=== PATIENT | female | born 2000 | race Caucasian/White ===

== ENCOUNTER 2020-07-15 11:25 | Emergency (ER) | payer OTHER ==
[~2020-07-15] VITALS: Ht 157.4 cm; Wt 111.8 kg
[2020-07-15] MEDS ORDERED: FAMOTIDINE 20MG/2ML IV (PEPCID) IV STA (11:53)
[2020-07-15] MEDS ORDERED: LACTATED RINGERS 1,000 ML IV STA (11:53)
--- NOTE | 2020-07-15 11:53 | ED Abdominal Pain ---
General Chief Complaint: Abdominal/GI Problems Stated Complaint: LLQ PAIN; DIZZINESS; NAUSEA History of Present Illness Date Seen by Provider: Jul 15, 2020 Time Seen by Provider: 11:48 Initial Comments 19-year-old female presents with some left quadrant pain. Patient reports been going on for couple days. Happens after she eats or drinks evening. Reports that is mainly in the left mid to upper quadrant sometimes goes down the left lower quadrant. She is a bit nauseated. She has had diarrhea for couple days. She denies any cough, fever, chills, chest pain or other systemic complaints. Allergies and Home Medications Allergies Coded Allergies: No Known Drug Allergies (Unverified , 07/15/20) Patient Home Medication List Home Medication List Reviewed: Yes Review of Systems Review of Systems Constitutional: No chills, No fever, No weakness Respiratory: Denies Cough, Denies Shortness of Air Cardiovascular: Denies Chest Pain, Denies Palpitations Gastrointestinal: Abdominal Pain, Diarrhea, Nausea Genitourinary: Denies Burning, Denies Frequency Skin: no symptoms reported Psychiatric/Neurological: No Symptoms Reported Endocrine: No Symptoms Reported Hematologic/Lymphatic: No Symptoms Reported Past Jvhjnbq-Swfpjh-Hojfzu Hx Past Med/Social Hx: Reviewed Nursing Past Med/Soc Hx Physical Exam Vital Signs Vital Signs - First Documented 07/15/20 11:31 Temp 37.2 Pulse 91 Resp 16 B/P (MAP) 125/73 (90) Pulse Ox 100 O2 Delivery Room Air Capillary Refill : Height/Weight/BMI Height: '" Weight: lbs. oz. 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, no motor/sensory deficits, alert, normal mood/affect, oriented x 3 Skin: normal color, warm/dry Progress/Results/Core Measures Results/Orders Lab Results Laboratory Tests Test 07/15/20 11:43 07/15/20 12:20 Range/Units Urine Color RED H Urine Clarity CLOUDY Urine pH 7.5 5-9 Urine Specific [place] 1.025 H 1.016-1.022 Urine Protein NEGATIVE NEGATIVE Urine Glucose (UA) NEGATIVE NEGATIVE Urine Ketones NEGATIVE NEGATIVE Urine Nitrite NEGATIVE NEGATIVE Urine Bilirubin NEGATIVE NEGATIVE Urine Urobilinogen 0.2 < = 1.0 MG/DL Urine Leukocyte Esterase NEGATIVE NEGATIVE Urine RBC (Auto) 3+ H NEGATIVE Urine RBC TNTC H /HPF Urine WBC RARE /HPF Urine Squamous Epithelial Cells 0-2 /HPF Urine Crystals NONE /LPF Urine Bacteria LARGE H /HPF Urine Casts NONE /LPF Urine Mucus NEGATIVE /LPF Urine Culture Indicated NO White Blood Count 9.9 4.3-11.0 10^3/uL Red Blood Count 4.99 4.35-5.85 10^6/uL Hemoglobin 13.6 11.5-16.0 G/DL Hematocrit 40 35-52 % Mean Corpuscular Volume 81 80-99 FL Mean Corpuscular Hemoglobin 27 25-34 PG Mean Corpuscular Hemoglobin Concent 34 32-36 G/DL Red Cell Distribution Width 13.7 10.0-14.5 % Platelet Count 275 130-400 10^3/uL Mean Platelet Volume 9.9 7.4-10.4 FL Immature Granulocyte % (Auto) 0 % Neutrophils (%) (Auto) 66 42-75 % Lymphocytes (%) (Auto) 26 12-44 % Monocytes (%) (Auto) 6 0-12 % Eosinophils (%) (Auto) 1 0-10 % Basophils (%) (Auto) 1 0-10 % Neutrophils # (Auto) 6.5 1.8-7.8 X 10^3 Lymphocytes # (Auto) 2.6 1.0-4.0 X 10^3 Monocytes # (Auto) 0.6 0.0-1.0 X 10^3 Eosinophils # (Auto) 0.1 0.0-0.3 10^3/uL Basophils # (Auto) 0.1 0.0-0.1 10^3/uL Immature Granulocyte # (Auto) 0.0 0.0-0.1 10^3/uL Sodium Level 137 135-145 MMOL/L Potassium Level 3.9 3.6-5.0 MMOL/L Chloride Level 101 98-107 MMOL/L Carbon Dioxide Level 26 21-32 MMOL/L Anion Gap 10 5-14 MMOL/L Blood Urea Nitrogen 10 7-18 MG/DL Creatinine 0.63 0.60-1.30 MG/DL Estimat Glomerular Filtration Rate > 60 BUN/Creatinine Ratio 16 Glucose Level 97 70-105 MG/DL Calcium Level 9.5 8.5-10.1 MG/DL Corrected Calcium 9.3 8.5-10.1 MG/DL Total Bilirubin 0.2 0.1-1.0 MG/DL Aspartate Amino Transf (AST/SGOT) 16 5-34 U/L Alanine Aminotransferase (ALT/SGPT) 22 0-55 U/L Alkaline Phosphatase 84 40-136 U/L C-Reactive Protein 0.70 H <0.50 MG/DL Total Protein 7.9 6.4-8.2 GM/DL Albumin 4.2 3.2-4.5 GM/DL Lipase 14 8-78 U/L My Orders Orders - SINGH,ANDREA L DO Cbc With Automated Diff (07/15/20 11:53) Comprehensive Metabolic Panel (07/15/20 11:53) Lipase (07/15/20 11:53) Ua Culture If Indicated (07/15/20 11:53) Crp Fs (07/15/20 11:53) Abdomen Flat & Upright/Decub (07/15/20 11:53) Lactated Ringers (Lr 1000 Ml Iv Solution (07/15/20 11:53) Famotidine Injection (Pepcid Injection) (07/15/20 11:53) Ed Iv/Invasive Line Start (07/15/20 11:53) Vital Signs/I&O 07/15/20 11:31 Temp 37.2 Pulse 91 Resp 16 B/P (MAP) 125/73 (90) Pulse Ox 100 O2 Delivery Room Air Progress Progress Note : Time: 13:07 Progress Note Patient tenderness is where her elevated stool load is on x-ray. She has no acute findings on x-ray. She does not have any rebound or other concerning physical exam. Patient likely has some mild constipation with may be early GI bug. Discussed with her the need to add MiraLAX if she is having any further stool issues, drinking plenty of fluid, recommend Pepcid for some mild gastritis. Patient stable and discharged home Diagnostic Imaging Diagonstic Imaging: Xray Plain Films/CT/US/NM/MRI: abdomen Comments [place], [place] NAME: DIOR GARCIA [facility] REC#: [id number] PT STATUS: REG ER : 2000 PHYSICIAN: ANDREA SINGH DO ADMIT DATE: 07/15/20/ER FS Draft Date of Exam:07/15/20 ABDOMEN FLAT & UPRIGHT/DECUB INDICATION: Left lower quadrant pain. FINDINGS: There is stool in the colon. The colonic fecal volume may be mildly elevated. No focal impaction or obstruction. There are pelvic calcifications, predominantly if not entirely of a vascular nature. The curvilinear calcification in the left pelvis could be vascular or a distal ureteral stone measuring 3 mm, correlate clinically. No opaque kidney stones are found. There is no evidence for small bowel obstruction. IMPRESSION: 1. Borderline elevated colonic fecal load, mild constipation not excluded. Pelvic phleboliths are present with one left-sided pelvic calcification that could reflect stone in the appropriate clinical scenario. 2. No evidence for bowel obstruction or perforation. Reviewed: Reviewed by Me, Reviewed/Discussed Departure Impression Primary Impression: Gastritis Qualified Codes: K29.70 - Gastritis, unspecified, without bleeding Additional Impression: Constipation Qualified Codes: K59.00 - Constipation, unspecified Disposition: HOME, SELF-CARE Condition: Stable Departure-Patient Inst. Referrals: NO,LOCAL PHYSICIAN (PCP/Family) Primary Care Physician Patient Instructions: Gastritis, Constipation, Adult (DC) Add. Discharge Instructions: Please start Pepcid(famotidine) daily as directed on package Drink plenty of fluids Follow-up with your primary care provider if symptoms have not improved by the middle next week or return the ER if they significantly worsen All discharge instructions reviewed with patient and/or family. Voiced understanding. ANDREA SINGH DO Jul 15, 2020 11:53
[2020-07-15 12:18] LABS: CLARITY,URINE CLOUDY; COLOR,URINE RED; PH,URINE 7.5 (5-9)
--- NOTE | 2020-07-15 12:18 | Diagnostic Imaging Report ---
INDICATION: Left lower quadrant pain. FINDINGS: There is stool in the colon. The colonic fecal volume may be mildly elevated. No focal impaction or obstruction. There are pelvic calcifications, predominantly if not entirely of a vascular nature. The curvilinear calcification in the left pelvis could be vascular or a distal ureteral stone measuring 3 mm, correlate clinically. No opaque kidney stones are found. There is no evidence for small bowel obstruction. IMPRESSION: 1. Borderline elevated colonic fecal load, mild constipation not excluded. Pelvic phleboliths are present with one left-sided pelvic calcification that could reflect stone in the appropriate clinical scenario. 2. No evidence for bowel obstruction or perforation. Dictated by: Dictated on workstation # [id number]
[2020-07-15 12:19] LABS: BACTERIA,URINE LARGE /HPF; BILIRUBIN,URINE NEGATIVE (NEGATIVE); GLUCOSE, URINE (UA) NEGATIVE (NEGATIVE); KETONES,URINE NEGATIVE (NEGATIVE); LEUKOCYTE ESTERASE ,URINE NEGATIVE (NEGATIVE); NITRITE,URINE NEGATIVE (NEGATIVE); PROTEIN,URINE NEGATIVE (NEGATIVE); RBC,URINE TNTC /HPF; SQUAMOUS EPITHELIAL CELL,UR 0-2 /HPF; WBC,URINE RARE /HPF
[2020-07-15 12:32] LABS: HEMATOCRIT 40 % (35-52); HEMOGLOBIN 13.6 G/DL (11.5-16.0); MEAN CORPUSCULAR HEMOGLOBIN 27 PG (25-34); MEAN CORPUSCULAR HGB CONC 34 G/DL (32-36); MEAN CORPUSCULAR VOLUME 81 FL (80-99); MEAN PLATELET VOLUME 9.9 FL (7.4-10.4); PLATELET COUNT 275 10^3/uL (130-400); WHITE BLOOD COUNT 9.9 10^3/uL (4.3-11.0)
[2020-07-15 12:33] LABS: BASOPHILS # (AUTO) 0.1 10^3/uL (0.0-0.1); BASOPHILS % (AUTO) 1 % (0-10); EOSINOPHILS # (AUTO) 0.1 10^3/uL (0.0-0.3); EOSINOPHILS % (AUTO) 1 % (0-10); LYMPHOCYTES # (AUTO) 2.6 X 10^3 (1.0-4.0); LYMPHOCYTES % (AUTO) 26 % (12-44); MONOCYTES # (AUTO) 0.6 X 10^3 (0.0-1.0); MONOCYTES % (AUTO) 6 % (0-12); NEUTROPHILS # (AUTO) 6.5 X 10^3 (1.8-7.8); NEUTROPHILS % (AUTO) 66 % (42-75)
[2020-07-15 12:56] LABS: ALANINE AMINOTRANSFERASE 22 U/L (0-55); ALKALINE PHOSPHATASE 84 U/L (40-136); BILIRUBIN,TOTAL 0.2 MG/DL (0.1-1.0); BUN/CREATININE RATIO 16; CALCIUM 9.5 MG/DL (8.5-10.1); CARBON DIOXIDE 26 MMOL/L (21-32); CHLORIDE 101 MMOL/L (98-107); CREATININE SERUM 0.63 MG/DL (0.60-1.30); GFR ESTIMATED > 60; GLUCOSE 97 MG/DL (70-105); POTASSIUM 3.9 MMOL/L (3.6-5.0); SODIUM 137 MMOL/L (135-145); TOTAL PROTEIN 7.9 GM/DL (6.4-8.2)
[2020-07-15 12:57] LABS: ALBUMIN 4.2 GM/DL (3.2-4.5); LIPASE 14 U/L (8-78)
[2020-07-15 13:25] VITALS: BP 127/69
== END 2020-07-15 13:26 | disposition home or self-care (01) ==
LOC: EDUNIT# 11:25 → ER FS 11:27
DX: K29.70 Gastritis, unspecified, without bleeding (principal); K59.00 Constipation, unspecified
CPT/HCPCS: 36415; 74019; 80053; 81000; 83690; 85025; 86141

== ENCOUNTER 2021-12-28 07:42 | Emergency (ER) | payer OTHER ==
[~2021-12-28] VITALS: Ht 157 cm; Wt 113.0 kg
[2021-12-28] MEDS ORDERED: KETOROLAC 30 MG/ML VIAL IVP STA (07:57)
[2021-12-28] MEDS ORDERED: NS IV 1000 ML 1,000 ML IV STA (07:57)
[2021-12-28] MEDS ORDERED: ONDANSETRON 4 MG/2 ML (SDV) Z0FRAN IVP STA (07:57)
[2021-12-28] MEDS ORDERED: FURO20TA4 (08:01)
[2021-12-28 08:02] LABS: BASOPHILS % (AUTO) 0 % (0-10); EOSINOPHILS # (AUTO) 0.1 10^3/uL (0.0-0.3); EOSINOPHILS % (AUTO) 1 % (0-10); HEMATOCRIT 39 % (35-52); HEMOGLOBIN 12.8 g/dL (11.5-16.0); LYMPHOCYTES # (AUTO) 2.6 10^3/uL (1.0-4.0); LYMPHOCYTES % (AUTO) 19 % (12-44); MEAN CORPUSCULAR HEMOGLOBIN 26 pg (25-34); MEAN CORPUSCULAR HGB CONC 33 g/dL (32-36); MEAN CORPUSCULAR VOLUME 79 fL (80-99); MEAN PLATELET VOLUME 9.5 fL (9.0-12.2); MONOCYTES # (AUTO) 0.9 10^3/uL (0.0-1.0); MONOCYTES % (AUTO) 7 % (0-12); NEUTROPHILS # (AUTO) 9.7 10^3/uL (1.8-7.8); NEUTROPHILS % (AUTO) 72 % (42-75); PLATELET COUNT 285 10^3/uL (130-400); WHITE BLOOD COUNT 13.4 10^3/uL (4.3-11.0)
[2021-12-28 08:05] LABS: BILIRUBIN,URINE NEGATIVE (NEGATIVE); CLARITY,URINE SL CLOUDY; COLOR,URINE YELLOW; GLUCOSE, URINE (UA) NEGATIVE (NEGATIVE); KETONES,URINE NEGATIVE (NEGATIVE); LEUKOCYTE ESTERASE ,URINE 2+ (NEGATIVE); NITRITE,URINE NEGATIVE (NEGATIVE); PH,URINE 6.5 (5-9); PROTEIN,URINE NEGATIVE (NEGATIVE)
--- NOTE | 2021-12-28 08:08 | ED Abdominal Pain ---
General Chief Complaint: Abdominal/GI Problems Stated Complaint: RT SIDE PAIN Source of Information: Patient NPO Since: 714 History of Present Illness Date Seen by Provider: Dec 28, 2021 Time Seen by Provider: 07:45 Initial Comments 21-year-old female presenting with complaints of sudden onset of right-sided pain and flank pain this morning. She states after she woke up she suddenly developed pain in the right side. She has nausea but has not vomited. She f eels like the pain is worse when she is walking and moving. She has not tried taking anything for the pain. She rates the pain 8 out of 10. Pain has been constant since starting other than being more severe with walking and moving. She denies any pain with urination. Her last menstrual cycle was December 15. She denies having a surgery on her abdomen or pelvis. She has had no change in her bowels. She denies fever or chills. Timing/Duration: 1/2 Hour Severity/Quality: Severe, Sharp Location: RUQ, RLQ, Flank (Right side) Radiation: Flank (Right side) Activities at Onset: None Modifying Factors: Worsens With Movement Associated Symptoms: No Back Pain, No Chest Pain, No Diaphoresis, No Fever/Chills, No Fatigue, No Headache, No Heartburn; Nausea/Vomiting (Nausea but no vomiting); No Rash, No Shortness of Air, No Swelling/Mass in Abdomen, No Syncope, No Weakness Allergies and Home Medications Allergies Coded Allergies: No Known Drug Allergies (Unverified , 07/15/20) Patient Home Medication List Home Medication List Reviewed: Yes Furosemide (Furosemide) 20 Mg Tablet, (Reported) Entered as Reported by: BISI LEWIS on 12/28/21 0801 Last Action: New Order Nitrofurantoin Monohyd/M-Cryst (Macrobid 100 mg Capsule) 100 Mg Capsule, 1 TAB PO BID Prescribed by: LEIDA BETH on 12/28/21 0855 Review of Systems Review of Systems Constitutional: No chills, No fever EENTM: No Symptoms Reported Respiratory: No Symptoms Reported Cardiovascular: No Symptoms Reported Gastrointestinal: See HPI; Denies Diarrhea; Nausea; Denies Vomiting Genitourinary: Denies Burning, Denies Frequency, Denies Pain Musculoskeletal: no symptoms reported Skin: no symptoms reported Psychiatric/Neurological: Anxiety Past Oxzxxrb-Fxqdml-Funpmg Hx Patient Social History Tobacco Use?: No Use of E-Cig and/or Vaping dev: No Substance use?: No Alcohol Use?: No Seasonal Allergies Seasonal Allergies: No Past Medical History Surgery/Hospitalization HX: 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 oz. 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, alert, oriented x 3, other (anxious) Skin: normal color, warm/dry Progress/Results/Core Measures Results/Orders Lab Results Laboratory Tests Test 12/28/21 07:48 12/28/21 07:50 Range/Units Urine Color YELLOW Urine Clarity [place] CLOUDY Urine pH 6.5 5-9 Urine Specific [place] 1.020 1.016-1.022 Urine Protein NEGATIVE NEGATIVE Urine Glucose (UA) NEGATIVE NEGATIVE Urine Ketones NEGATIVE NEGATIVE Urine Nitrite NEGATIVE NEGATIVE Urine Bilirubin NEGATIVE NEGATIVE Urine Urobilinogen 0.2 < = 1.0 MG/DL Urine Leukocyte Esterase 2+ H NEGATIVE Urine RBC (Auto) NEGATIVE NEGATIVE Urine RBC NONE /HPF Urine WBC 5-10 H /HPF Urine Squamous Epithelial Cells 10-25 H /HPF Urine Crystals NONE /LPF Urine Bacteria MODERATE H /HPF Urine Casts NONE /LPF Urine Mucus NEGATIVE /LPF Urine Culture Indicated YES White Blood Count 13.4 H 4.3-11.0 10^3/uL Red Blood Count 4.97 3.80-5.11 10^6/uL Hemoglobin 12.8 11.5-16.0 g/dL Hematocrit 39 35-52 % Mean Corpuscular Volume 79 L 80-99 fL Mean Corpuscular Hemoglobin 26 25-34 pg Mean Corpuscular Hemoglobin Concent 33 32-36 g/dL Red Cell Distribution Width 13.4 10.0-14.5 % Platelet Count 285 130-400 10^3/uL Mean Platelet Volume 9.5 9.0-12.2 fL Immature Granulocyte % (Auto) 0 % Neutrophils (%) (Auto) 72 42-75 % Lymphocytes (%) (Auto) 19 12-44 % Monocytes (%) (Auto) 7 0-12 % Eosinophils (%) (Auto) 1 0-10 % Basophils (%) (Auto) 0 0-10 % Neutrophils # (Auto) 9.7 H 1.8-7.8 10^3/uL Lymphocytes # (Auto) 2.6 1.0-4.0 10^3/uL Monocytes # (Auto) 0.9 0.0-1.0 10^3/uL Eosinophils # (Auto) 0.1 0.0-0.3 10^3/uL Basophils # (Auto) 0.0 0.0-0.1 10^3/uL Immature Granulocyte # (Auto) 0.1 0.0-0.1 10^3/uL Sodium Level 137 135-145 MMOL/L Potassium Level 4.0 3.6-5.0 MMOL/L Chloride Level 103 98-107 MMOL/L Carbon Dioxide Level 24 21-32 MMOL/L Anion Gap 10 5-14 MMOL/L Blood Urea Nitrogen 11 7-18 MG/DL Creatinine 0.63 0.60-1.30 MG/DL Estimat Glomerular Filtration Rate 129 BUN/Creatinine Ratio 17 Glucose Level 95 70-105 MG/DL Calcium Level 9.0 8.5-10.1 MG/DL Corrected Calcium 9.0 8.5-10.1 MG/DL Total Bilirubin 0.4 0.1-1.0 MG/DL Aspartate Amino Transf (AST/SGOT) 28 5-34 U/L Alanine Aminotransferase (ALT/SGPT) 40 0-55 U/L Alkaline Phosphatase 87 40-136 U/L Total Protein 7.6 6.4-8.2 GM/DL Albumin 4.0 3.2-4.5 GM/DL Lipase 16 8-78 U/L My Orders Orders - LEIDA BETH MD Comprehensive Metabolic Panel (12/28/21 07:47) Lipase (12/28/21 07:47) Ua Culture If Indicated (12/28/21 07:47) Ed Iv/Invasive Line Start (12/28/21 07:47) Cbc With Automated Diff (12/28/21 07:47) Urine Bedside (12/28/21 07:47) Ns Iv 1000 Ml (Sodium Chloride 0.9%) (12/28/21 07:57) Ondansetron Injection (Zofran Injectio (12/28/21 07:57) Ketorolac Injection (Toradol Injection) (12/28/21 07:57) Ct Abd/Pelvis Wo(Kidney Stone) (12/28/21 07:58) Urine Culture (12/28/21 07:48) Ceftriaxone 1 Gm Pre-Mix (Rocephin 1 Gm (12/28/21 08:34) Vital Signs/I&O 12/28/21 12/28/21 07:45 09:14 Temp 36.6 36.6 Pulse 95 95 Resp 16 16 B/P (MAP) 149/86 (107) 149/86 Pulse Ox 98 98 O2 Delivery Room Air Room Air Progress Progress Note #1: Progress Note Obtain labs and urinalysis, Bedside test. CT scan of abdomen/pelvis without contrast to evaluate for possible kidney stone vs gallbladder vs colitis vs diverticulitis vs appendicitis. Give NS 1 L IVF bolus for hydration, Zofran 4 mg IV for nausea, Toradol 30 mg IV for pain. Progress Note #2: Time: 08:32 Progress Note Urine shows signs of UTI. She does have slight elevation of her white blood cell count to 13.4. CT scan showed no definite acute abnormality but increased stool towards the ileum. Will treat with antibiotic for UTI and reassess her pain after treatment here in the ED. Progress Note #3: Time: 08:49 Progress Note Chemistry panel without acute significant abnormality. Patient reports pain down to 3 out of 10. Will treat for UTI and advise to take Acetaminophen or Ibuprofen for pain if needed. Drink plenty of fluids. If pain worsens instead of improving in next 12 to 24 hours then return for repeat evaluation. At this point you do not have signs of appendicitis, diverticulitis, colitis, cholecystitis, bowel obstruction. Counseled on strict return precautions and follow-up as needed for continued symptoms Diagnostic Imaging Diagonstic Imaging: CT Plain Films/CT/US/NM/MRI: abdomen, pelvis Comments NAME: DIOR GARCIA [facility] REC#: [id number] PT STATUS: REG ER : 2000 PHYSICIAN: LEIDA BETH MD ADMIT DATE: 12/28/21/ER FS Draft Date of Exam:12/28/21 CT ABD/PELVIS WO(KIDNEY STONE) PROCEDURE: CT urinary tract, rule out kidney stone. TECHNIQUE: Multiple contiguous axial images were obtained through the abdomen and pelvis without the use of intravenous contrast. Auto Exposure Controls were utilized during the CT exam to meet ALARA standards for radiation dose reduction. INDICATION: Acute onset right flank pain Noncontrast images of liver and spleen reveal no focal abnormality. There is no evidence of pancreatic, gallbladder or adrenal gland abnormality. Kidneys are also unremarkable in appearance without evidence of hydronephrosis. There is no evidence of urinary tract calculus. There is fecalization of contents within distal ileum indicating stasis. Occasional mildly prominent lymph nodes are also present in the right lower quadrant mesentery. Unopacified bladder is unremarkable. IMPRESSION: No definite acute abnormalities identified although there is suggestion of fecal stasis in the distal ileum. No associated inflammation or fluid collection is identified. Dictated on workstation # [id number] Dict: 12/28/21812 Trans: 12/28/21821 [facility] [place] [id number] Interpreted by: DAVE MINOR MD Electronically signed by: Reviewed: Reviewed by Me Departure Impression Primary Impression: Right sided abdominal pain Additional Impression: Acute cystitis without hematuria Disposition: HOME, SELF-CARE Condition: Stable Departure-Patient Inst. Decision time for Depature: 08:55 Referrals: RAFITA KRAUS MD (PCP) Primary Care Physician Patient Instructions: Flank Pain ED, Abdominal Pain, Adult ED, Urinary Tract Infection, Adult ED Add. Discharge Instructions: Stay well-hydrated and drink plenty of fluids. Take the full course of antibiotics to help treat for urinary tract infection. For pain take acetaminophen or an NSAID such as ibuprofen to help with severe pain. If your symptoms are worsening instead of improving over the next 12 to 24 hours then you should be reevaluated. At this point there is no signs of appendicitis or gallbladder problem. However if your symptoms are worsening we would need to take a look again since everything just started suddenly this morning. It is possible that it is too early to show any other issue on your testing. So if your symptoms worsen then we would need to check again to see if there is something more than the Urine infection and Increased stool on the right side to cause your pain. All discharge instructions reviewed with patient and/or family. Voiced understanding. Scripts Nitrofurantoin Monohyd/M-Cryst (Macrobid 100 mg Capsule) 100 Mg Capsule 1 TAB PO BID for UTI for 7 Days, #14 CAP 0 Refills Prov: LEIDA BETH MD 12/28/21 Work/School Note: Work Release Form Date Seen in the Emergency Department: Dec 28, 2021 Return to Work: Dec 29, 2021 Restrictions: No Restrictions LEIDA BETH MD Dec 28, 2021 08:08
[2021-12-28 08:13] LABS: BACTERIA,URINE MODERATE /HPF
--- NOTE | 2021-12-28 08:23 | Diagnostic Imaging Report ---
PROCEDURE: CT urinary tract, rule out kidney stone. TECHNIQUE: Multiple contiguous axial images were obtained through the abdomen and pelvis without the use of intravenous contrast. Auto Exposure Controls were utilized during the CT exam to meet ALARA standards for radiation dose reduction. INDICATION: Acute onset right flank pain Noncontrast images of liver and spleen reveal no focal abnormality. There is no evidence of pancreatic, gallbladder or adrenal gland abnormality. Kidneys are also unremarkable in appearance without evidence of hydronephrosis. There is no evidence of urinary tract calculus. There is fecalization of contents within distal ileum indicating stasis. Occasional mildly prominent lymph nodes are also present in the right lower quadrant mesentery. Unopacified bladder is unremarkable. IMPRESSION: No definite acute abnormalities identified although there is suggestion of fecal stasis in the distal ileum. No associated inflammation or fluid collection is identified. Dictated by: Dictated on workstation # [id number]
[2021-12-28] MEDS ORDERED: cefTRIAXone 1 GM PRE-MIX 50 ML IV STA (08:34)
[2021-12-28 08:36] LABS: BILIRUBIN,TOTAL 0.4 MG/DL (0.1-1.0); CREATININE SERUM 0.63 MG/DL (0.60-1.30); TOTAL PROTEIN 7.6 GM/DL (6.4-8.2)
[2021-12-28] MEDS ORDERED: NITR-65 PO (08:55)
[2021-12-28 09:14] VITALS: BP 149/86
== END 2021-12-28 09:14 | disposition home or self-care (01) ==
LOC: EDUNIT# 07:42 → ER FS 07:44
DX: N30.00 Acute cystitis without hematuria (principal); E66.9 Obesity, unspecified; Z68.42 Body mass index [BMI] 45.0-49.9, adult
CPT/HCPCS: 36415; 74176; 80053; 81000; 83690; 84703; 85025; 87088